=== PATIENT | female | born 1985 | race Caucasian/White ===

== ENCOUNTER 2017-12-17 06:15 | Inpatient (IN) ==
[2017-12-17] MEDS ORDERED: Naloxone Inj 0.4 MG/ML Vial IV.PUSH PRN ×2 (06:42→16:36)
[2017-12-17] MEDS ORDERED: fentaNYL Citrate Inj 100 MCG/2 ML Ampul IV.PUSH PRN ×2 (06:42)
[2017-12-17] MEDS ORDERED: Sodium Chlor 0.9% Inj 500 ML IV.SIG PRN (06:42)
[2017-12-17] MEDS ORDERED: fentaNYL Citrate Inj 100 MCG/2 ML Ampul ONE (06:42)
[2017-12-17] MEDS ORDERED: Oxytocin 30 Units/500ml Premix 30 UNITS/500 ML BAG IV.SIG ONE (06:42)
[2017-12-17] MEDS ORDERED: Sod Chloride 0.9% Inj 1,000 ML IV.CONT PRN (06:42)
--- NOTE | 2017-12-17 06:44 | ED ---
History of Present Illness Primary Care Physician: UNKNOWN History of Present Illness: 32-year-old 3 para 1 at 39 weeks gestation who presents with increasing contractions. She denies leakage of fluid but has had some bloody mucus discharge. Obstetrical history: She has been followed with Dr. Em and has had an uncomplicated . Her prior was delivered by at 8 cm dilation and she desires . Her first was a miscarriage for which she underwent a D&C. She is GBS negative. - Inpatient Certification I certify that the inpatient services were ordered in accordance with Medicare regulations governing the order. This includes certification that hospital inpatient services are reasonable and necessary and in the case of services not specified as inpatient-only under 42 CFR 419.22(n), that they are appropriately provided as inpatient services in accordance to with the 2-midnight benchmark under 43 CFR 412.3(e) Review of Systems All other systems reviewed negative except as stated in HPI PMFSH - Medical / Surgical Hx Neg / Unobtainable Medical Problems Denied: Yes - Surgical History Surgical History: Surgical History (Last Updated 12/17/17 @ 06:38 by Jermaine Rios MD) History of delivery History of dilation and curettage - Social History I have reviewed the patient's Social History: Yes - Tobacco History Tobacco Use In Past 30 Days: No - Alcohol History How Often Do You Have a Drink Containing Alcohol: Monthly or less - Travel History Recent Travel Out of the Country Within the Last 8 Weeks: No Medications and Allergies Allergies Allergy/AdvReac Type Severity Reaction Status Date / Time No Known Allergies Allergy Uncoded 01/30/14 11:03 Home Medications Medication Instructions Recorded Confirmed Type vit [id number] 1 tab PO DAILY 12/17/17 12/17/17 History [ + DHA] Exam Vital signs: Vital Signs 12/17/17 06:27 Temperature 98.0 F Pulse Rate 97 H Respiratory Rate 18 Blood Pressure 126/71 Narrative: GENERAL: Well-nourished, well-developed patient. SKIN: Warm and dry. HEAD: Normocephalic and atraumatic. EYES: No scleral icterus. No injection or drainage. ENT: No nasal drainage noted. Mucous membranes pink. Airway patent. NECK: Supple, trachea midline. No JVD. CARDIOVASCULAR: Regular rate and rhythm without murmurs, gallops, or rubs. RESPIRATORY: Breath sounds equal bilaterally. No accessory muscle use. ABDOMEN/GI: Abdomen soft, non-tender, bowel sounds present, no rebound, no guarding Gravid to [-] weeks size Fundal Height: [-] GENITOURINARY: External Genitalia: intact and normal in appearance BUS glands: [-Negative] Cervix: [-] Dilatation: [5-] Effacement: [-100] Station: [--1] Presentation: [vtx-] Membranes: [intact] Uterine Contractions: [q3-] FHT's: Category: [-1] Baseline: [140-] Reactive: [-] Variability: [mod-] Decels: [-v] EXTREMITIES: No cyanosis or edema. BACK: Nontender without obvious deformity. No CVA tenderness. NEUROLOGICAL: Awake and alert. Motor and sensory grossly within normal limits. Five out of 5 muscle strength in all muscle groups. Normal speech. Assessment and Plan - Plan Assessment: 32-year-old with term intrauterine in active labor desiring Plan: Admit for labor management. The risks benefits and alternatives were reviewed in regard to versus C- section. She consents to . Dr. Em is aware of the patient's arrival. Discharge Plan - Discharge Disposition Patient Disposition: 30 Still Patient - Physicians Team ED Provider: Jermaine Rios Primary Care Provider: UNKNOWN,
[2017-12-17] MEDS ORDERED: Citric Acid/Sodium Citrate Liq 30 ML UDC PO SCH (06:45)
--- NOTE | 2017-12-17 06:47 | P.HPOB ---
Patient Name: Rosio Kowalski Date of : 85 Patient Status: Inpatient Attending Provider: Obi Godinez Date: 12/17/17 06:35 Initialization Date: 12/17/17 06:35 History of Present Illness Primary Care Physician: UNKNOWN History of Present Illness: 32-year-old 3 para 1 at 39 weeks gestation who presents with increasing contractions. She denies leakage of fluid but has had some bloody mucus discharge. Obstetrical history: She has been followed with Dr. Em and has had an uncomplicated . Her prior was delivered by at 8 cm dilation and she desires . Her first was a miscarriage for which she underwent a D&C. She is GBS negative. - Inpatient Certification I certify that the inpatient services were ordered in accordance with Medicare regulations governing the order. This includes certification that hospital inpatient services are reasonable and necessary and in the case of services not specified as inpatient-only under 42 CFR 419.22(n), that they are appropriately provided as inpatient services in accordance to with the 2-midnight benchmark under 43 CFR 412.3(e) Review of Systems All other systems reviewed negative except as stated in HPI PMFSH - Medical / Surgical Hx Neg / Unobtainable Medical Problems Denied: Yes - Surgical History Surgical History: Surgical History (Last Updated 12/17/17 @ 06:38 by Jermaine Rios MD) History of delivery History of dilation and curettage - Social History I have reviewed the patient's Social History: Yes - Tobacco History Tobacco Use In Past 30 Days: No - Alcohol History How Often Do You Have a Drink Containing Alcohol: Monthly or less - Travel History Recent Travel Out of the Country Within the Last 8 Weeks: No Medications and Allergies Allergies Allergy/AdvReac Type Severity Reaction Status Date / Time No Known Allergies Allergy Uncoded 01/30/14 11:03 Home Medications Medication Instructions Recorded Confirmed Type vit [id number]-vgra-[id number]-dha 1 tab PO DAILY 12/17/17 12/17/17 History [ + DHA] Exam Vital signs: Vital Signs 12/17/17 06:27 Temperature 98.0 F Pulse Rate 97 H Respiratory Rate 18 Blood Pressure 126/71 Narrative: GENERAL: Well-nourished, well-developed patient. SKIN: Warm and dry. HEAD: Normocephalic and atraumatic. EYES: No scleral icterus. No injection or drainage. ENT: No nasal drainage noted. Mucous membranes pink. Airway patent. NECK: Supple, trachea midline. No JVD. CARDIOVASCULAR: Regular rate and rhythm without murmurs, gallops, or rubs. RESPIRATORY: Breath sounds equal bilaterally. No accessory muscle use. ABDOMEN/GI: Abdomen soft, non-tender, bowel sounds present, no rebound, no guarding Gravid to [-] weeks size Fundal Height: [-] GENITOURINARY: External Genitalia: intact and normal in appearance BUS glands: [-Negative] Cervix: [-] Dilatation: [5-] Effacement: [-100] Station: [--1] Presentation: [vtx-] Membranes: [intact] Uterine Contractions: [q3-] FHT's: Category: [-1] Baseline: [140-] Reactive: [-] Variability: [mod-] Decels: [-v] EXTREMITIES: No cyanosis or edema. BACK: Nontender without obvious deformity. No CVA tenderness. NEUROLOGICAL: Awake and alert. Motor and sensory grossly within normal limits. Five out of 5 muscle strength in all muscle groups. Normal speech. Assessment and Plan - Plan Assessment: 32-year-old with term intrauterine in active labor desiring Plan: Admit for labor management. The risks benefits and alternatives were reviewed in regard to versus C- section. She consents to . Dr. Em is aware of the patient's arrival. Discharge Plan - Discharge Disposition Patient Disposition: 30 Still Patient - Physicians Team ED Provider: Jermaine Rios Primary Care Provider: UNKNOWN,
[2017-12-17 07:09] LABS: Baso # (Auto) 0.1 th/mm3 (0.0-0.2); Baso % (Auto) 0.6 % (0.0-2.0); Hematocrit 32.1 % (35.0-46.0); Hemoglobin 10.3 gm/dL (11.6-15.3); Lymph # (Auto) 1.6 th/mm3 (1.0-4.8); Lymph % (Auto) 8.3 % (9.0-44.0); Mean Corpuscular HGB Conc 32.2 % (32.0-36.0); Mean Corpuscular Hemoglobin 27.9 pg (27.0-34.0); Mean Corpuscular Volume 86.8 fL (80.0-100.0); Mean Platelet Volume 8.6 fL (7.0-11.0); Mono # (Auto) 0.7 th/mm3 (0.0-0.9); Mono % (Auto) 3.7 % (0.0-8.0); Neut # (Auto) 16.5 th/mm3 (1.8-7.7); Neut % (Auto) 87.4 % (16.0-70.0); Platelet Count 362 th/mm3 (150-450); Red Cell Distribution Width 15.3 % (11.6-17.2); White Blood Count 18.9 th/mm3 (4.0-11.0)
[2017-12-17] MEDS ORDERED: fentaNYL 2MCG-Bupiv 0.125% Epi 150 ML EPIDURAL ONE (07:19)
[2017-12-17] MEDS ORDERED: Bupivacaine PF 0.25% Inj 10 ML Vial ONE (07:25)
[2017-12-17] MEDS ORDERED: Lidocaaine 1.5%/Epinephrine 1:200,000 PF Inj 5 ML Amp ONE (07:25)
[2017-12-17] MEDS ORDERED: Lidocaine PF 1% Inj 5 ML Vial ONE (07:25)
[2017-12-17 08:15] LABS: Platelet Estimate Normal (Normal); Platelet Morphology Normal (Normal)
[2017-12-17] MEDS ORDERED: fentaNYL Citrate Inj 100 MCG/2 ML Ampul EPIDURAL ONE (08:28)
[2017-12-17] MEDS ORDERED: fentaNYL 2MCG-Bupiv 0.125% Epi 150 ML EPIDURAL PRN (08:28)
--- NOTE | 2017-12-17 09:45 | P.OBLABOR ---
Subjective Interval history: pt trying to with epidural Objective Vital Signs: Vital Signs - 8 hr 12/17/17 06:27 12/17/17 06:40 12/17/17 06:48 Temperature 98.0 F Pulse Rate 97 H 72 45 L Respiratory Rate 18 20 Blood Pressure 126/71 12/17/17 06:55 12/17/17 07:21 12/17/17 07:25 Temperature Pulse Rate 88 83 Respiratory Rate 17 Blood Pressure 105/91 H 12/17/17 07:26 12/17/17 07:52 12/17/17 07:59 Temperature Pulse Rate 96 H 91 H Respiratory Rate 18 Blood Pressure 109/73 112/75 12/17/17 08:45 12/17/17 09:10 12/17/17 09:27 Temperature Pulse Rate 95 H 100 H 119 H Respiratory Rate 17 18 Blood Pressure 98/54 L 108/65 Objective: Pelvic Exam: Cervix: [-] Dilatation: 7 Effacement: 80 Station: -2 Presentation: VTX Membranes: AROM Uterine Contractions: [-] FHT's: Category: 1 Baseline: [-] Reactive: [-] Variability: [-] Decels: [-] Patient Started Active Labor: Yes Medical Induction of Labor: No Artificial Rupture of Membrane: Yes Artificial ROM Date: 12/17/17 Artificial ROM Time: 09:30 Assessment and Plan - Diagnosis (1) 39 weeks gestation of Code(s): Z3A.39 - 39 weeks gestation of Status: Acute (2) Patient declines vaginal after section () Code(s): O34.219 - Maternal care for unspecified type scar from previous delivery Status: Acute
[2017-12-17 10:36] LABS: Amorphous Sediment,Urine Rare /hpf; Bacteria,Urine Rare /hpf; Bilirubin,Urine Negative (Negative); Clarity,Urine Cloudy (Clear); Color,Urine Yellow (Yellw/Straw); Glucose,Urine (UA) Negative (Negative); Leukocyte Esterase,Urine Negative (Negative); Mucus,Urine Few /lpf (Occasional); Nitrite,Urine Negative (Negative); Specific Gravity,Urine 1.015 (1.002-1.035); Squamous Epithelial Cell,Urine 1 /hpf (0-5)
[2017-12-17 10:39] LABS: Amphetamine Urine With Conf Neg (Neg); Benzodiazepine Urine With Conf Neg (Neg)
[2017-12-17] MEDS ORDERED: Oxytocin 30 Units/500ml Premix 30 UNITS/500 ML BAG IV.CONT PRN ×2 (11:43→16:36)
[2017-12-17] MEDS ORDERED: Diphtheria/Tetanus/Pertussis Vaccine Inj 0.5 ML Syringe IM ONE (16:00)
[2017-12-17] MEDS ORDERED: Measles/Mumps/Rubella Vaccine Inj 0.5 ML Vial SQ ONE (16:00)
[2017-12-17] MEDS ORDERED: Witch Hazel 50%/Glyderin 12.5% 40 Pad Jar RECTAL PRN (16:36)
[2017-12-17] MEDS ORDERED: Bisacodyl 10 MG Supp RECTAL PRN (16:36)
[2017-12-17] MEDS ORDERED: Zolpidem Tartrate 5 MG Tablet PO PRN (16:36)
[2017-12-17] MEDS ORDERED: Acetaminophen 325 MG Tablet PO PRN (16:36)
[2017-12-17] MEDS ORDERED: Benzocaine 20% Top Spray 60 ML Can TOPICAL PRN (16:36)
--- NOTE | 2017-12-17 16:41 | P.OBDELI ---
Weeks Gestation: 39 Patient Started Active Labor: Yes Active Labor Start Date: 12/17/17 Active Labor Start Time: 06:00 Artificial Rupture of Membrane: Yes Artificial ROM Date: 12/17/17 Anesthesia: Epidural Episiotomy: none Vaginal Delivery: Presentation: Occiput anterior Nuchal Cord: None Delayed Cord Clamping (45 sec): Yes Placenta: Spontaneous delivery, Intact, 3 vessel cord Laceration: Perineal, 3 deg, Involving anal sphincter (partial) Repair: Chromic running (for 2nd degree), Vicryl interrupted (for anal sphincter ) Infant: Male, Single
[2017-12-17] MEDS: Senna/Docusate Sodium 8.6/50 MG Tablet PO SCH (21:11)
[2017-12-18 08:04] VITALS: PULSE 85; RESP 16; TEMP 98
[2017-12-18 08:05] VITALS: BP 96/61
--- NOTE | 2017-12-18 08:10 | P.PNOB ---
Subjective Post day: 1 Interval history: doing well wants DC home Objective Vital Signs/I&O: Vital Signs 12/17/17 08:45 12/17/17 09:10 12/17/17 09:27 Temperature Pulse Rate 95 H 100 H 119 H Respiratory Rate 17 18 Blood Pressure 98/54 L 108/65 12/17/17 09:30 12/17/17 09:35 12/17/17 09:40 Temperature 98.7 F Pulse Rate 104 H 102 H 100 H Respiratory Rate Blood Pressure 106/63 110/76 12/17/17 09:55 12/17/17 09:58 12/17/17 10:05 Temperature Pulse Rate 100 H 93 H Respiratory Rate 18 Blood Pressure 113/74 111/71 12/17/17 10:10 12/17/17 10:15 12/17/17 10:20 Temperature Pulse Rate 88 90 85 Respiratory Rate Blood Pressure 113/70 12/17/17 10:30 12/17/17 10:35 12/17/17 10:40 Temperature Pulse Rate 91 H 93 H Respiratory Rate 16 Blood Pressure 12/17/17 10:45 12/17/17 10:50 12/17/17 11:10 Temperature Pulse Rate 106 H 97 H Respiratory Rate 17 Blood Pressure 106/65 82/70 L 12/17/17 11:15 12/17/17 11:20 12/17/17 11:49 Temperature Pulse Rate 105 H 97 H Respiratory Rate 17 17 Blood Pressure 119/81 119/78 12/17/17 11:55 12/17/17 12:10 12/17/17 12:15 Temperature 97.8 F Pulse Rate 96 H 101 H Respiratory Rate 18 Blood Pressure 111/78 12/17/17 12:25 12/17/17 12:35 12/17/17 12:45 Temperature Pulse Rate 95 H 95 H 101 H Respiratory Rate 16 Blood Pressure 111/74 120/75 12/17/17 13:00 12/17/17 13:10 12/17/17 13:25 Temperature Pulse Rate 97 H 116 H 103 H Respiratory Rate 17 Blood Pressure 105/65 90/63 L 12/17/17 13:29 12/17/17 13:30 12/17/17 13:40 Temperature Pulse Rate 131 H 115 H Respiratory Rate 17 Blood Pressure 116/81 123/76 12/17/17 13:55 12/17/17 14:15 12/17/17 14:20 Temperature Pulse Rate 100 H Respiratory Rate 18 17 Blood Pressure 110/75 12/17/17 14:25 12/17/17 14:30 12/17/17 14:40 Temperature Pulse Rate 102 H 98 H 118 H Respiratory Rate Blood Pressure 110/73 113/71 12/17/17 14:55 12/17/17 14:56 12/17/17 15:00 Temperature Pulse Rate 110 H 117 H Respiratory Rate 18 Blood Pressure 107/65 12/17/17 15:25 12/17/17 15:27 12/17/17 15:34 Temperature 99.5 F 99.5 F Pulse Rate 115 H 150 H Respiratory Rate 17 Blood Pressure 118/75 12/17/17 15:40 12/17/17 16:00 12/17/17 16:05 Temperature Pulse Rate 139 H 121 H Respiratory Rate 18 17 Blood Pressure 115/82 109/69 12/17/17 16:20 12/17/17 16:21 12/17/17 16:30 Temperature 98.8 F Pulse Rate 143 H 140 H Respiratory Rate Blood Pressure 114/70 12/17/17 16:45 12/17/17 17:00 12/17/17 17:01 Temperature Pulse Rate 127 H 120 H Respiratory Rate 18 17 Blood Pressure 120/85 118/78 12/17/17 17:15 12/17/17 17:30 12/17/17 18:00 Temperature Pulse Rate 116 H 101 H 103 H Respiratory Rate 18 17 Blood Pressure 116/80 100/65 110/78 12/17/17 18:15 12/17/17 19:00 12/17/17 19:24 Temperature Pulse Rate 126 H Respiratory Rate 18 17 18 Blood Pressure 120/81 12/17/17 21:14 12/18/17 07:54 12/18/17 08:04 Temperature 98.3 F 98.0 F Pulse Rate 81 85 Respiratory Rate 18 16 Blood Pressure 116/74 96/61 L Intake & Output 12/17/17 12/18/17 12/18/17 18:59 06:59 18:59 Intake Total 1000 / 1000 Balance 1000 / 1000 Intake: IV 1000 / 1000 LR 1000 mL Inj 1,000 ML @ 125 1000 / 1000 mls/hr IV.CONT .Q8H [facility] Rx#: [id number] Result Diagrams: 12/17/17 06:45 Objective Remarks: GENERAL: Well-nourished, well-developed patient. ABDOMEN/GI: Abdomen soft, non-tender. Fundus: Firm, non-tender at umbilicus. GENITOURINARY: Light to moderate bleeding. EXTREMITIES: No cyanosis or edema, non-tender, without signs of DVT. Medications and IVs: Active Medications Acetaminophen (Tylenol) 650 mg PO Q4H PRN PRN Reason: PAIN SCALE 1 TO 2 Al Hydroxide/Mg Hydroxide (Milk Of Magnesia Liq) 30 ml PO Q12H PRN PRN Reason: Mild Constipation Benzocaine (Americaine 20% Top [place]) 1 spray TOPICAL Q4H PRN PRN Reason: For Perineum Discomfort Last Admin: 12/17/17 21:12 Dose: 1 spray Bisacodyl (Dulcolax Supp) 10 mg RECTAL DAILY PRN PRN Reason: SEVERE CONSITIPATION Citric Acid/Sodium Citrate (Sodium Citrate/Citric Acid Liq) 30 ml PO [employer] [facility] Stop: 12/21/17 06:44 Ephedrine Sulfate (Ephedrine/Ns Syringe) 10 mg IV.PUSH UNSCH PRN PRN Reason: SEE LABEL COMMENTS Stop: 12/18/17 08:28 Fentanyl Citrate (Fentanyl Inj) 50 mcg IV.PUSH Q1H PRN PRN Reason: Pain Scale 3 - 5 Fentanyl Citrate (Fentanyl Inj) 100 mcg IV.PUSH Q1H PRN PRN Reason: PAIN SCALE 6 TO 10 Lactated Ringer's (Lr 1000 Ml Inj) 1,000 mls @ 125 mls/hr IV.CONT .Q8H [facility] Last Admin: 12/17/17 16:00 Dose: 125 mls/hr Lactated Ringer's (Lr 1000 Ml Inj) 1,000 mls @ 3,000 mls/hr IV.SIG UNSCH PRN PRN Reason: compromise or epidural Last Admin: 12/17/17 08:00 Dose: 3,000 mls/hr Sodium Chloride (Ns Inj) 500 mls @ 1,000 mls/hr IV.SIG UNSCH PRN PRN Reason: SEE LABEL COMMENTS Sodium Chloride (Ns Inj) 1,000 mls @ 100 mls/hr IV.CONT .Q10H PRN PRN Reason: SEE LABEL COMMENTS Fentanyl/Bupivacaine/Sodium Chlor (Fentanyl 2 Mcg-Bupiv 0.125% Epi) 150 mls @ 10 mls/hr EPIDURAL PRN PRN PRN Reason: for Labor Pain Last Admin: 12/17/17 08:00 Dose: 10 mls/hr Oxytocin (Pitocin 30 Units/Ns 500 Ml Premix) 30 units in 500 mls @ 2 mls/hr IV.CONT TITRATE PRN; Protocol PRN Reason: For induction of labor Last Admin: 12/17/17 11:52 Dose: 2 milliunit/min, 2 mls/hr Oxytocin (Pitocin 30 Units/Ns 500 Ml Premix) 30 units in 500 mls @ 100 mls/hr IV.CONT UNSCH PRN PRN Reason: Heavy bleeding Last Admin: 12/17/17 17:36 Dose: 100 mls/hr Ibuprofen (Motrin) 800 mg PO Q8H PRN PRN Reason: For Cramping Last Admin: 12/18/17 06:00 Dose: 800 mg Lactulose (Lactulose Liq) 30 ml PO DAILY PRN PRN Reason: SEVERE CONSITIPATION Lidocaine HCl (Xylocaine 1% Inj) 0.1 ml I-DERMAL PRN PRN PRN Reason: For IV start Stop: 12/20/17 06:41 Lidocaine HCl (Xylocaine 1% Inj) 10 ml INFILTRATN PRN PRN PRN Reason: For episiotomy repair Stop: 12/19/17 06:41 Methylergonovine Maleate (Methergine) 0.2 mg PO Q8H [facility] Stop: 12/18/17 18:29 Last Admin: 12/18/17 02:48 Dose: 0.2 mg Mineral Oil (Muri-Lube Oil) 10 ml TOPICAL PRN PRN PRN Reason: PRN perineal massage Miscellaneous Information (Misc Information) 1 each OTHER UNSCH PRN PRN Reason: SEE LABEL COMMENTS Stop: 12/18/17 08:28 Miscellaneous Information (Misc Information) 1 each OTHER UNSCH PRN PRN Reason: SEE LABEL COMMENTS Stop: 12/18/17 08:28 Naloxone HCl (Narcan Inj) 0.1 mg IV.PUSH Q2M PRN PRN Reason: for opiate reversal Naloxone HCl (Narcan Inj) 0.1 mg IV.PUSH Q2M PRN PRN Reason: for opiate reversal Ondansetron HCl (Zofran Odt) 4 mg PO Q6H PRN PRN Reason: NAUSEA OR VOMITING Oxycodone/Acetaminophen (Percocet 5/325 Mg) 2 tab PO Q4H PRN PRN Reason: PAIN SCALE 6 TO 10 Oxycodone/Acetaminophen (Percocet 5/325 Mg) 1 tab PO Q4H PRN PRN Reason: PAIN SCALE 3 TO 5 Senna/Docusate Sodium (Gail-Colace) 1 tab PO BID [facility] Last Admin: 12/17/17 21:11 Dose: 1 tab Sennosides (Senokot) 17.2 mg PO Q12H PRN PRN Reason: Moderate Constipation Sodium Chloride (Ns Flush) 2 ml IV.FLUSH BID [facility] Last Admin: 12/17/17 22:54 Dose: Not Given Sodium Chloride (Ns Flush) 2 ml IV.FLUSH PRN PRN PRN Reason: FLUSH AFTER USING IV ACCESS Witch [place]/Glycerin (Tucks Pads) 1 applicatio RECTAL QID PRN PRN Reason: HEMORRHOIDS Last Admin: 12/17/17 21:11 Dose: 1 applicatio Zolpidem Tartrate (Ambien) 5 mg PO HS PRN PRN Reason: SLEEP Assessment and Plan - Diagnosis (1) 39 weeks gestation of Code(s): Z3A.39 - 39 weeks gestation of Status: Acute (2) Patient declines vaginal after section () Code(s): O34.219 - Maternal care for unspecified type scar from previous delivery Status: Acute
[2017-12-18] MEDS: Senna/Docusate Sodium 8.6/50 MG Tablet PO SCH (11:31)
--- NOTE | 2017-12-18 15:59 | P.DS ---
Date of admission: 12/17/17 06:26 Primary care physician: UNKNOWN Attending physician on discharge: Obi Godinez Anticipated date of discharge: 12/18/17 Brief History from admission: 32 yo patient came in labor and had . Cs for 12/19 cancelled DS: Diagnosis - Discharge Diagnosis (1) 39 weeks gestation of Status: Acute (2) Patient declines vaginal after section () Status: Acute DS: Summary Hospital Course: patient came in labor and successfully - Time Spent with Patient Total time spent providing and/or coordinating discharge services: Less than 30 minutes Exam Vital signs: Vital Signs 12/17/17 16:00 12/17/17 16:05 12/17/17 16:20 Temperature Pulse Rate 121 H 143 H Respiratory Rate 18 17 Blood Pressure 109/69 12/17/17 16:21 12/17/17 16:30 12/17/17 16:45 Temperature 98.8 F Pulse Rate 140 H 127 H Respiratory Rate 18 Blood Pressure 114/70 120/85 12/17/17 17:00 12/17/17 17:01 12/17/17 17:15 Temperature Pulse Rate 120 H 116 H Respiratory Rate 17 18 Blood Pressure 118/78 116/80 12/17/17 17:30 12/17/17 18:00 12/17/17 18:15 Temperature Pulse Rate 101 H 103 H Respiratory Rate 17 18 Blood Pressure 100/65 110/78 12/17/17 19:00 12/17/17 19:24 12/17/17 21:14 Temperature 98.3 F Pulse Rate 126 H 81 Respiratory Rate 17 18 18 Blood Pressure 120/81 116/74 12/18/17 07:54 12/18/17 08:04 Temperature 98.0 F Pulse Rate 85 Respiratory Rate 16 Blood Pressure 96/61 L Intake & Output 12/17/17 12/18/17 12/18/17 18:59 06:59 18:59 Intake Total 1000 / 1000 Balance 1000 / 1000 Intake: IV 1000 / 1000 LR 1000 mL Inj 1,000 ML @ 125 1000 / 1000 mls/hr IV.CONT .Q8H [facility] Rx#: [id number] - Constitutional no acute distress - Routine Neck Exam Present: full ROM - Routine Cardiovascular Exam Present: RRR - Routine Abdominal Exam Present: soft Results Procedures completed during hospitalization: Discharge Plan - Discharge Disposition Patient Disposition: 01 Discharge Home - Discharge Condition Condition: Stable - Discharge Order Discharge Orders: Discharge Order (Routine); Ordered 12/18/17 Ordered By: Obi Godinez - Physicians Team Primary Care Provider: UNKNOWN, Attending Provider: Obi Godinez
== END 2017-12-18 20:01 | disposition home or self-care (01) ==
LOC: HOBED 06:15 → H2E 06:26 → H1EA 20:58
PROVIDERS: ADMIT Obstetrics & Gynecology; ATTEND Obstetrics & Gynecology